=== PATIENT | female | born 1970 | race Two or more races ===

== ENCOUNTER 2021-07-26 08:27 | Emergency (ER) | payer SELFPAY ==
[2021-07-26] MEDS ORDERED: FAMOTIDINE 20 MG/50 ML IVPB 20 MG in PREMIX 50 IVPB ONE (08:37)
[2021-07-26] MEDS ORDERED: MAG HYDROX/AL HYDROX/SIMETH -MYLANTA- ORAL SUSPENSION PO ONE (08:38)
[2021-07-26 08:52] VITALS: TEMP 98.6; BMI 27.3
[2021-07-26] MEDS ORDERED: FAMOTIDINE 20 MG/50 ML IVPB 20 MG/50 ML MG IVPB ONE (08:54)
[2021-07-26] MEDS ORDERED: MAG HYDROX/AL HYDROX/SIMETH 30 ML UNIT-DOSE CUP ONE (08:54)
[2021-07-26 09:22] LABS: HEMATOCRIT 32.3 % (32.4-45.2); HEMOGLOBIN 10.9 G/dL (10.7-15.3); MCHC 33.7 g/dl (32.0-36.0); MEAN PLT VOLUME 7.6 fl (7.5-11.1); PLATELET COUNT 458.9 10^3/uL (134-434); RBC 3.51 10^6/uL (3.60-5.2); RDW 14.4 % (11.6-15.6); WHITE BLOOD COUNT 12.7 10^3/uL (4.0-10.8)
[2021-07-26 09:28] LABS: ALBUMIN 3.7 g/dl (3.4-5.0); BILIRUBIN,TOTAL 0.5 mg/dl (0.2-1); CALCIUM 8.8 mg/dl (8.5-10); TOT PROT 6.2 g/dl (6.4-8.2)
[2021-07-26 11:15] VITALS: BP 135/90; PULSE 96
== END 2021-07-26 11:15 | disposition home or self-care (01) ==
LOC: FER 08:27
PROC: 3E033GC Introduction of Other Therapeutic Substance into Peripheral Vein, Percutaneous Approach (ICD-10-PCS; principal; 2021-07-26)
DX: R07.9 Chest pain, unspecified (principal); K21.9 Gastro-esophageal reflux disease without esophagitis
CPT/HCPCS: 36415; 71046-TC-FY; 80053; 83690; 84484; 85025; 85379; 93005; 99285-25